=== PATIENT | female | born 1955 | race Caucasian/White ===

== ENCOUNTER 2019-03-21 20:56 | Inpatient (IN) | payer SELFPAY ==
[~2019-03-21] VITALS: Ht 154.9 cm; Wt 68.0 kg
[2019-03-21 21:39] VITALS: BP 127/67
[2019-03-21] MEDS ORDERED: NICOTINE POLACRILEX 4 MG LOZG PO PRN (22:15)
[2019-03-21] MEDS ORDERED: risperiDONE 1 MG TAB PO SCH (22:15)
[2019-03-21] MEDS ORDERED: CHLOR25 FT (22:43)
[2019-03-21] MEDS ORDERED: CHLOR25 PO (22:49)
[2019-03-21] MEDS ORDERED: ATEN-1 PO (22:49)
[2019-03-21] MEDS ORDERED: HYDR-4228 PO (22:51)
[2019-03-21] MEDS ORDERED: RISP1TAB79 PO (22:52)
[2019-03-21] MEDS ORDERED: ALBU8.5H IH (22:56)
[2019-03-21] MEDS ORDERED: MAG HYD/AL HYD/SIMETH 30ML UDC PO PRN (23:00)
[2019-03-21] MEDS ORDERED: TIO18R INH (23:07)
[2019-03-22 06:04] VITALS: BP 126/79
[2019-03-22] MEDS: MULTIVITAMINS TAB PO SCH (08:07)
[2019-03-22] MEDS: risperiDONE 1 MG TAB PO SCH ×2 (11:35→21:15)
[2019-03-22] MEDS: hydrOXYzine PAMOATE 25 MG CAP PO PRN ×2 (11:35→15:39)
[2019-03-22 14:16] VITALS: BP 114/78
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
[2019-03-22] MEDS: MENTHOL/METHYL SALI CREAM 57 GM 57 GM TUBE TP PRN (14:44)
[2019-03-22] MEDS ORDERED: NICOTINE CARTRIDGE 1 EA PO PRN (21:40)
[2019-03-22 21:44] VITALS: BP 115/75
--- NOTE | 2019-03-22 22:03 | NUR ---
pt set up with 2L/nc. Had it on approximately 5 min. Came out of room states "I will not wear that, It's not oxygen is something else". Oxygen taken out of room for safety. Instructed pt could have it back if she would like it. Addendum: 03/22/19 at 2205 by SVETA RAM RN Amended: Links added.
[2019-03-22] MEDS: ALBUTEROL 8 GM INHALER INH PRN (22:15)
[2019-03-22] MEDS: NICOTINE INH SYSTEM 10 MG/INH INH PRN (22:17)
[2019-03-23 05:55] VITALS: BP 107/75
[2019-03-23] MEDS: risperiDONE 1 MG TAB PO SCH ×2 (08:15→20:39)
[2019-03-23] MEDS: MULTIVITAMINS TAB PO SCH (08:15)
[2019-03-23] MEDS: hydrOXYzine PAMOATE 25 MG CAP PO PRN (08:50)
[2019-03-23] MEDS: MENTHOL/METHYL SALI CREAM 57 GM 57 GM TUBE TP PRN ×2 (08:51→16:02)
--- NOTE | 2019-03-23 09:22 | BHS Progress Note ---
[facility] - Subjective Progress Notes Subjective Patient cooperative today, refusing oxygen last night, because she felt "it was not oxygen", as she has had oxygen before at other hospitals. Patient would like to find a "secure place to live" . Patient now on Risperdal, and hydroxyzine. Appetite good, sleep intact. Mood good today, and interacting well with this provider. Suicidal Ideation: None Homicidal Ideation: None [facility] - Objective Physical Exam Vital Signs Vital Signs Date Time Temp Pulse Resp B/P (MAP) Pulse Ox O2 Delivery O2 Flow Rate FiO2 03/23/19 05:55 98.5 83 107/75 (86) 86 Room Air 03/22/19 06:04 16 Muscle Strength and Tone: WNL Gait and Station: Steady [facility] Medications Reviewed: Side Effects, Benefits of Medication, Risks Allergies Reviewed: Yes Mental Status Exam General Appearance: Casual, Well Groomed, Good Eye Contact, Cooperative, Polite, Good Interaction; No Unkept, No Tearful, No Psychomotor Agitation, No Psychomotor Retardation, No Bizarre Mannerisms, No Tics Speech: Clear, Spontaneous, Normal Rate, Normal Rhythm, Normal Volume, Normal Tone; No Slurred, No Garbled; Rambling (somewhat when talking of delusional content.) Mood: Euthymic Affect: Full and Appropriate, Calm; No Withdrawn, No Tearful, No Anxious, No Agitated Thought Process: Organized, Logical (illogical when focused on delusions. ), Goal Directed; No Loose Associations, No Flight of Ideas Thought Content: No Suicidal Ideation, No Homicidal Ideation; Delusions (ongoing grandiosity and persecutory); No Auditory Halllucinations, No Visual Hallucinations, No Thought Broadcasting; Ideas of Reference; No Obsessions, No Compulsions Sensorium: Clear Cognition: Alert & Oriented-Person, Alert & Oriented-Place, Alert & Oriented- Time, Nbtkh-Nrvjvdcu-Idjikznel Memory: Immediate, Recent, Remote Intelligence: Average Insight Judgment: Fair (underlying longstanding delusions, interfering. ) Result Diagram: 03/22/19 0637 [facility] Assessment and Plan Zadl-[id number] Encounter Date: Mar 23, 2019 Wzeb-po-Pisc Encounter Time: 08:40 [facility] Plan: Necessary Precautions, Individual/Group Therapy, Admin/Titrate Meds, Educate Patient Tobacco Medications: Started Multpiple Antipsychotics Used: No Problems: (1) DELUSIONAL DISORDERS Optional Permanent Comment: paranoid and grandiose type Last Edited By: Tory Kowalski on Mar 23, 2019 09:18 Status: Chronic Condition 1. continue medications. 2. look for placement. JUSTIN KOWALSKI MD Mar 23, 2019 09:22
[2019-03-23] MEDS: ALBUTEROL 8 GM INHALER INH PRN (10:42)
[2019-03-23 13:04] VITALS: BP 116/90
[2019-03-23] MEDS: NICOTINE INH SYSTEM 10 MG/INH INH PRN (15:59)
[2019-03-23 20:45] VITALS: BP 123/72
[2019-03-24 04:40] VITALS: BP 171/98
[2019-03-24 05:59] VITALS: BP 134/84
[2019-03-24] MEDS: risperiDONE 1 MG TAB PO SCH ×2 (08:11→21:00)
[2019-03-24] MEDS: MULTIVITAMINS TAB PO SCH (08:12)
[2019-03-24] MEDS: NICOTINE INH SYSTEM 10 MG/INH INH PRN (08:51)
[2019-03-24] MEDS: MENTHOL/METHYL SALI CREAM 57 GM 57 GM TUBE TP PRN (08:53)
[2019-03-24 09:44] VITALS: BP 134/81
[2019-03-24] MEDS ORDERED: ASPI1TAB23 PO (11:04)
[2019-03-24] MEDS ORDERED: OMEG10007 PO (11:04)
[2019-03-24] MEDS ORDERED: MENT113G6 TP (11:04)
--- NOTE | 2019-03-24 12:12 | BHS Progress Note ---
[facility] - Subjective Progress Notes Subjective "I am doing well", patient reports she would be tolerant of a roommate if necessary, and noted to be an active and cooperative participant in therapy groups. Mood good, much less talk of delusional content today, and patient reports good sleep and appetite. will continue to look into placement. no medication changes. Suicidal Ideation: None Homicidal Ideation: None [facility] - Objective Physical Exam Vital Signs Vital Signs Date Time Temp Pulse Resp B/P (MAP) Pulse Ox O2 Delivery O2 Flow Rate FiO2 03/24/19 09:44 98.0 96 134/81 (98) 95 Room Air 03/24/19 05:59 15 Muscle Strength and Tone: WNL Gait and Station: Steady [facility] Medications Reviewed: Side Effects, Benefits of Medication, Risks Allergies Reviewed: Yes Mental Status Exam General Appearance: Casual, Well Groomed, Good Eye Contact, Cooperative, Polite, Good Interaction; No Unkept, No Tearful, No Psychomotor Agitation, No Psychomotor Retardation, No Bizarre Mannerisms, No Tics Speech: Clear, Spontaneous, Normal Rate, Normal Rhythm, Normal Volume, Normal Tone; No Slurred, No Garbled; Rambling (somewhat when talking of delusional content.) Mood: Euthymic Affect: Full and Appropriate, Calm; No Withdrawn, No Tearful, No Anxious, No Ag itated Thought Process: Organized, Logical (illogical when focused on delusions. ), Goal Directed; No Loose Associations, No Flight of Ideas Thought Content: No Suicidal Ideation, No Homicidal Ideation; Delusions (ongoing grandiosity and persecutory); No Auditory Halllucinations, No Visual Hallucinations, No Thought Broadcasting; Ideas of Reference; No Obsessions, No Compulsions Sensorium: Clear Cognition: Alert & Oriented-Person, Alert & Oriented-Place, Alert & Oriented- Time, Hrrnl-Imtogwmm-Jzvhacacp Memory: Immediate, Recent, Remote Intelligence: Average Insight Judgment: Fair (underlying longstanding delusions, interfering. ) Result Diagram: 03/22/19 0637 [facility] Assessment and Plan Zfcv-ec-Hosw Encounter Date: Mar 24, 2019 Otxx-xz-Ulat Encounter Time: 12:00 [facility] Plan: Necessary Precautions, Individual/Group Therapy, Admin/Titrate Meds, Educate Patient Tobacco Medications: Started Multpiple Antipsychotics Used: No Problems: (1) DELUSIONAL DISORDERS Optional Permanent Comment: paranoid and grandiose type Last Edited By: Justin Kowalski on Mar 23, 2019 09:18 Status: Chronic Condition 1. continue treatment. 2. no medication changes. 3. look into potential placement. JUSTIN KOWALSKI MD Mar 24, 2019 12:12
[2019-03-24] MEDS: hydrOXYzine PAMOATE 25 MG CAP PO PRN (17:41)
[2019-03-24] MEDS: ACETAMINOPHEN 325 MG TAB PO PRN (19:18)
[2019-03-24 21:11] VITALS: BP 121/69
[2019-03-24] MEDS ORDERED: ONDANSETRON 4 MG ODT TABDP SL ONE (22:00)
[2019-03-25 04:40] VITALS: BP 126/79
[2019-03-25] MEDS: MULTIVITAMINS TAB PO SCH (08:14)
[2019-03-25] MEDS: risperiDONE 1 MG TAB PO SCH ×2 (08:14→20:42)
[2019-03-25] MEDS: NICOTINE INH SYSTEM 10 MG/INH INH PRN (08:55)
[2019-03-25] MEDS: ACETAMINOPHEN 325 MG TAB PO PRN (08:58)
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
[2019-03-25] MEDS: hydrOXYzine PAMOATE 25 MG CAP PO PRN (15:46)
[2019-03-25 20:54] VITALS: BP 114/80
[2019-03-26 06:46] VITALS: BP 127/84
[2019-03-26] MEDS: MULTIVITAMINS TAB PO SCH (07:46)
[2019-03-26] MEDS: risperiDONE 1 MG TAB PO SCH ×2 (07:46→20:27)
[2019-03-26] MEDS: ACETAMINOPHEN 325 MG TAB PO PRN ×2 (07:46→12:55)
--- NOTE | 2019-03-26 11:03 | BHS Progress Note ---
[facility] - Subjective Progress Notes Subjective Patient reports doing well overall today, worried about her car being towed from hotel. Patient agrees to have vehicle moved to hospital. Patient stabilizing on Meds, and will continue the same medications today, and will continue to look for placement. Sleep, appetite, good. No other concerns today. Suicidal Ideation: None Homicidal Ideation: None [facility] - Objective Physical Exam Vital Signs Vital Signs Date Time Temp Pulse Resp B/P (MAP) Pulse Ox O2 Delivery O2 Flow Rate FiO2 03/26/19 06:46 98.6 106 15 127/84 (98) 85 Room Air Muscle Strength and Tone: WNL Gait and Station: Steady [facility] Medications Reviewed: Side Effects, Benefits of Medication, Risks Allergies Reviewed: Yes Mental Status Exam General Appearance: Casual, Well Groomed, Good Eye Contact, Cooperative, Polite, Good Interaction; No Unkept, No Tearful, No Psychomotor Agitation, No Psychomotor Retardation, No Bizarre Mannerisms, No Tics Speech: Clear, Spontaneous, Normal Rate, Normal Rhythm, Normal Volume, Normal Tone; No Slurred, No Garbled; Rambling (somewhat when talking of delusional content.) Mood: Euthymic Affect: Full and Appropriate, Calm; No Withdrawn, No Tearful, No Anxious, No Agitated Thought Process: Organized, Logical (illogical when focused on delusions. ), Goal Directed; No Loose Associations, No Flight of Ideas Thought Content: No Suicidal Ideation, No Homicidal Ideation; Delusions (ongoing grandiosity and persecutory); No Auditory Halllucinations, No Visual [place] llucinations, No Thought Broadcasting; Ideas of Reference; No Obsessions, No Compulsions Sensorium: Clear Cognition: Alert & Oriented-Person, Alert & Oriented-Place, Alert & Oriented- Time, Wpjmq-Efushfva-Srgmjyhwa Memory: Immediate, Recent, Remote Intelligence: Average Insight Judgment: Fair (underlying longstanding delusions, interfering. ) Result Diagram: 03/22/19 0637 [facility] Assessment and Plan Sktq-co-Irda Encounter Date: Mar 26, 2019 Qcvr-[id number] Encounter Time: 10:30 [facility] Plan: Necessary Precautions, Individual/Group Therapy, Admin/Titrate Meds, Educate Patient Tobacco Medications: Started Multpiple Antipsychotics Used: No Problems: (1) DELUSIONAL DISORDERS Optional Permanent Comment: paranoid and grandiose type Last Edited By: Justin Kowalski on Mar 23, 2019 09:18 Status: Chronic Condition 1. continue treatment. 2. no medication changes. 3. look for placement upon discharge. JUSTIN KOWALSKI MD Mar 26, 2019 11:03
[2019-03-26 12:40] VITALS: BP 94/62
[2019-03-26] MEDS: MENTHOL/METHYL SALI CREAM 57 GM 57 GM TUBE TP PRN (12:48)
[2019-03-26] MEDS: hydrOXYzine PAMOATE 25 MG CAP PO PRN (17:33)
[2019-03-26] MEDS: ALBUTEROL 8 GM INHALER INH PRN (17:40)
[2019-03-26 18:15] VITALS: BP 111/86
[2019-03-27 06:09] VITALS: BP 122/86
[2019-03-27] MEDS: ACETAMINOPHEN 325 MG TAB PO PRN ×2 (07:44→17:47)
[2019-03-27] MEDS: risperiDONE 1 MG TAB PO SCH ×2 (07:44→21:31)
[2019-03-27] MEDS: MULTIVITAMINS TAB PO SCH (07:44)
[2019-03-27] MEDS: MENTHOL/METHYL SALI CREAM 57 GM 57 GM TUBE TP PRN (07:45)
[2019-03-27] MEDS: NICOTINE INH SYSTEM 10 MG/INH INH PRN (08:47)
[2019-03-27] MEDS: hydrOXYzine PAMOATE 25 MG CAP PO PRN (09:46)
--- NOTE | 2019-03-27 10:41 | BHS Progress Note ---
[facility] - Subjective Progress Notes Subjective "I'm good. 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 I knew Ramírez Khoury...I wrote [place] on [employer] for him as a birthday present.' She reports that she is sleeping well. She reports that her anxiety and stress level are improving rating her current anxiety level a 2. She denies anger or depression. She denies SI. She reports looking forward to going to treatment. Suicidal Ideation: None Homicidal Ideation: None [facility] - Objective Physical Exam Vital Signs Vital Signs Date Time Temp Pulse Resp B/P (MAP) Pulse Ox O2 Delivery O2 Flow Rate FiO2 03/27/19 06:09 98.4 97 15 122/86 (98) 84 Room Air Muscle Strength and Tone: WNL Gait and Station: Steady [facility] Medications Reviewed: Side Effects, Benefits of Medication, Risks Allergies Reviewed: Yes Mental Status Exam General Appearance: Casual, Well Groomed, Good Eye Contact, Cooperative, Polite, Good Interaction; No Unkept, No Tearful, No Psychomotor Agitation, No Psychomotor Retardation, No Bizarre Mannerisms, No Tics Speech: Clear, Spontaneous, Normal Rate, Normal Rhythm, Normal Volume, Normal Tone; No Slurred, No Garbled; Rambling (somewhat when talking of delusional content.) Mood: Euthymic Affect: Full and Appropriate, Calm; No Withdrawn; Tearful (tearful at times when talking about events from past); No Anxious, No Agitated Thought Process: Organized, Logical (illogical when focused on delusions. ), Goal Directed; No Loose Associations, No Flight of Ideas Thought Content: No Suicidal Ideation, No Homicidal Ideation; Delusions (ongoing grandiosity and persecutory); No Auditory Halllucinations, No Visual Hallucinations, No Thought Broadcasting; Ideas of Reference; No Obsessions, No Compulsions Sensorium: Clear Cognition: Alert & Oriented-Person, Alert & Oriented-Place, Alert & Oriented- Time, Kuilo-Ojljbzzn-Yolcvpuwa Memory: Immediate, Recent, Remote Intelligence: Average Insight Judgment: Fair (underlying longstanding delusions, interfering. ) [facility] Assessment and Plan [id number] Encounter Date: Mar 27, 2019 Qbev-lr-Aduk Encounter Time: 08:45 [facility] Plan: Necessary Precautions, Individual/Group Therapy, Admin/Titrate Meds, Educate Patient Tobacco Medications: Started Multpiple Antipsychotics Used: No Problems: (1) DELUSIONAL DISORDERS Optional Permanent Comment: paranoid and grandiose type Last Edited By: Matt Chin on Mar 23, 2019 09:18 Status: Chronic Condition She is pleasant and cooperative. Grandiose and persecutory delusions continue a nd she shares detailed stories. She denies SI, HI. She is compliant with medications and reports that they are helpful. PLAN: No medication changes today. Continue discharge planning. ANTHONY BERMUDEZ NP Mar 27, 2019 10:41
[2019-03-27 11:15] VITALS: BP 112/62
[2019-03-27 20:06] VITALS: BP 129/85
[2019-03-28 06:11] VITALS: BP 131/92
[2019-03-28] MEDS: NICOTINE INH SYSTEM 10 MG/INH INH PRN ×3 (06:39→21:00)
[2019-03-28] MEDS: ACETAMINOPHEN 325 MG TAB PO PRN ×2 (07:10→13:46)
[2019-03-28] MEDS: hydrOXYzine PAMOATE 25 MG CAP PO PRN ×2 (07:10→13:45)
[2019-03-28] MEDS: MENTHOL/METHYL SALI CREAM 57 GM 57 GM TUBE TP PRN (07:11)
[2019-03-28] MEDS: risperiDONE 1 MG TAB PO SCH ×2 (07:51→21:37)
[2019-03-28] MEDS: MULTIVITAMINS TAB PO SCH (07:51)
--- NOTE | 2019-03-28 10:18 | BHS Progress Note ---
[facility] - Subjective Progress Notes Subjective "Ok. Real good. I have dementia so I don't remember what group was about but I know I enjoyed it." She reports sleeping well. Denies concerns today. Suicidal Ideation: None Homicidal Ideation: None [facility] - Objective Physical Exam Vital Signs Vital Signs 03/27/19 03/28/19 20:06 06:11 Temp 98.4 Pulse 73 Resp 16 B/P (MAP) 131/92 (105) Pulse Ox 88 O2 Delivery Room Air Muscle Strength and Tone: WNL Gait and Station: Steady [facility] Medications Reviewed: Side Effects, Benefits of Medication, Risks Allergies Reviewed: Yes Mental Status Exam General Appearance: Casual, Well Groomed, Good Eye Contact, Cooperative, Polite, Good Interaction; No Unkept, No Tearful, No Psychomotor Agitation, No Psychomotor Retardation, No Bizarre Mannerisms, No Tics Speech: Clear, Spontaneous, Normal Rate, Normal Rhythm, Normal Volume, Normal Tone; No Slurred, No Garbled; Rambling (somewhat when talking of delusional content.) Mood: Euthymic Affect: Full and Appropriate, Calm; No Withdrawn, No Anxious, No Agitated Thought Process: Organized, Logical (illogical when focused on delusions. ), Goal Directed; No Loose Associations, No Flight of Ideas Thought Content: No Suicidal Ideation, No Homicidal Ideation; Delusions (ongoing grandiosity and persecutory); No Auditory Halllucinations, No Visual Hallucinations, No Thought Broadcasting; Ideas of Reference; No Obsessions, No Compulsions Sensorium: Clear Cognition: Alert & Oriented-Person, Alert & Oriented-Place, Alert & Oriented- Time, Etzmu-Lentyssm-Oiprtqzzy Memory: Immediate, Recent, Remote Intelligence: Average Insight Judgment: Fair (underlying longstanding delusions, interfering. ) [facility] Assessment and Plan Doim-pl-Twfz Encounter Date: Mar 28, 2019 Yapc-[id number]-Vplp Encounter Time: 08:45 [facility] Plan: Necessary Precautions, Individual/Group Therapy, Admin/Titrate Meds, Educate Patient Tobacco Medications: Started Multpiple Antipsychotics Used: No Problems: (1) DELUSIONAL DISORDERS Optional Permanent Comment: paranoid and grandiose type Last Edited By: Matt Chin on Mar 23, 2019 09:18 Status: Chronic Condition Client is pleasant and cooperative. No tearfulness today. She reports that she is looking forward to going to treatment. She continues to experience perscetutory and grandiose delusions. PLAN: Continue to monitor and provide s afety and support. Continue current medications. Continue discharge planning. ANTHONY BERMUDEZ NP Mar 28, 2019 10:18
[2019-03-28 13:35] VITALS: BP 138/78
[2019-03-28 21:40] VITALS: BP 143/85
[2019-03-29] MEDS: NICOTINE INH SYSTEM 10 MG/INH INH PRN ×5 (06:04→21:23)
[2019-03-29 06:11] VITALS: BP 142/88
[2019-03-29] MEDS: hydrOXYzine PAMOATE 25 MG CAP PO PRN ×2 (06:25→13:05)
[2019-03-29] MEDS: ACETAMINOPHEN 325 MG TAB PO PRN ×2 (06:25→21:23)
[2019-03-29] MEDS: MULTIVITAMINS TAB PO SCH (08:13)
[2019-03-29] MEDS: risperiDONE 1 MG TAB PO SCH ×2 (08:13→21:12)
[2019-03-29 10:22] VITALS: BP 132/81
--- NOTE | 2019-03-29 11:03 | BHS Progress Note ---
[facility] - Subjective Progress Notes Subjective Patient continues to do well on the unit, and verbalizes a continued [facility] going to [facility], will await acceptance, and plan on move to [facility] if accepted to [facility]. Mild underlying delusions of persecution and grandiosity continue. 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 Suicidal Ideation: None Homicidal Ideation: None [facility] - Objective Physical Exam Vital Signs Vital Signs Date Time Temp Pulse Resp B/P (MAP) Pulse Ox O2 Delivery O2 Flow Rate FiO2 03/29/19 10:22 98.6 94 132/81 (98) 90 Room Air 03/28/19 13:35 18 Muscle Strength and Tone: WNL Gait and Station: Steady [facility] Medications Reviewed: Side Effects, Benefits of Medication, Risks Allergies Reviewed: Yes Mental Status Exam General Appearance: Casual, Well Groomed, Good Eye Contact, Cooperative, Polite, Good Interaction; No Unkept, No Tearful, No Psychomotor Agitation, No Psychomotor Retardation, No Bizarre Mannerisms, No Tics Speech: Clear, Spontaneous, Normal Rate, Normal Rhythm, Normal Volume, Normal Tone; No Slurred, No Garbled, No Rambling, No Inappropriate Mood: Euthymic Affect: Full and Appropriate, Calm; No Withdrawn, No Anxious, No Agitated Thought Process: Organized, Logical (illogical when focused on delusions. ), Goal Directed; No Loose Associations, No Flight of Ideas Thought Content: No Suicidal Ideation, No Homicidal Ideation; Delusions (ongoing grandiosity and persecutory); No Auditory Halllucinations, No Visual Hallucinations, No Thought Broadcasting; Ideas of Reference; No Obsessions, No Compulsions Sensorium: Clear Cognition: Alert & Oriented-Person, Alert & Oriented-Place, Alert & Oriented- Time, Wgdhm-Bylznffa-Dhntinzbp Memory: Immediate, Recent, Remote Intelligence: Average Insight Judgment: Fair (underlying longstanding delusions, interfering. ) [facility] Assessment and Plan Iesm-wr-[id number] Encounter Date: Mar 29, 2019 Ycwe-kw-Gbko Encounter Time: 10:30 [facility] Plan: Necessary Precautions, Individual/Group Therapy, Admin/Titrate Meds, Educate Patient Tobacco Medications: Started Multpiple Antipsychotics Used: No Problems: (1) DELUSIONAL DISORDERS Optional Permanent Comment: paranoid and grandiose type Last Edited By: Justin Kowalski on Mar 23, 2019 09:18 Status: Chronic Condition 1. Continue treatment. 2. no medication changes. 3. look into [facility] placement. JUSTIN KOWALSKI MD Mar 29, 2019 11:02
[2019-03-29] MEDS: TERBINAFINE 1% TP SCH ×2 (13:06→21:20)
[2019-03-29 21:26] VITALS: BP 158/99
[2019-03-30] MEDS: ACETAMINOPHEN 325 MG TAB PO PRN (05:37)
[2019-03-30 05:58] VITALS: BP 152/96
[2019-03-30] MEDS: NICOTINE INH SYSTEM 10 MG/INH INH PRN (06:20)
[2019-03-30] MEDS: MULTIVITAMINS TAB PO SCH (08:14)
[2019-03-30] MEDS: risperiDONE 1 MG TAB PO SCH (08:14)
[2019-03-30] MEDS: MENTHOL/METHYL SALI CREAM 57 GM 57 GM TUBE TP PRN (08:15)
[2019-03-30] MEDS: TERBINAFINE 1% TP SCH (08:15)
[2019-03-30] MEDS ORDERED: LAMISIL 1% CREAM TOP (08:56)
[2019-03-30] MEDS ORDERED: MULT-1379 PO (08:57)
[2019-03-30] MEDS ORDERED: NIC10R INH (08:59)
[2019-03-30] MEDS ORDERED: NICOTINE CARTRIDGE PO (09:00)
--- NOTE | 2019-03-31 15:02 | SCHAAF DISCHARGE ---
DATE OF ADMISSION: March 21, 2019. DATE OF DISCHARGE: March 30, 2019. ATTENDING PHYSICIAN Matt Chin MD The patient was seen at approximately 0800 hours on March 30, 2019 for note concerning this dictation. FINAL DIAGNOSES 1. Delusional disorder with grandiose and persecutory type delusions. 2. Social stressors related to illness ongoing. 3. Limited resources. REASON FOR ADMISSION This is a 64-year-old female who was traveling through the [facility]. The patient reportedly was becoming tired and got stopped and went to a hotel. The patient experienced increasing paranoia with different tenants in the hotel. She called police to come and evaluate the situation. The police eventually talked to the patient enough to where they through she should be evaluated in the emergency room. The patient was brought on a voluntary basis to the emergency room, admitted to [facility] for further management of what appeared to be underlying persecutory type delusions. Upon admission to the Behavioral Health Unit, the patient reported simultaneously persecutory type and grandiose delusions. Please see H and P for full details. The patient also reporting that low-dose Risperdal and hydroxyzine has helped her in the past and would like to restart these medications. These medications were restarted and the patient also noted to be drug seeking to a limited degree of benzodiazepines which were not given. The patient continued to improve. She was able to participate in groups, was encouraged to consider [facility] half-way placement which the patient stated she would do. As this was being looked into, the patient continued to improve and later decided to leave to pursue her travels to the [facility]. Any gross paranoia the patient exhibited on the unit such as feeling her oxygen was being poisoned quickly subsided with the administration of Risperdal and therapy. The patient overall remained calm and cooperative and took an active role in her treatment, attending group and individual therapy sessions and patient's symptoms overall lessened to the point she could be safely discharged. PHYSICAL EXAMINATION Please see emergency room note. Notable for a 64-year-old female, no acute medical distress. Vital signs at the time of admission: Temperature 98.3, pulse 81, respiratory rate 16, blood pressure 129/91 and pulse oximetry 89% on room air. Vital signs at the time of discharge: Temperature 98.7, pulse 81, respiratory rate 18, blood pressure 152/96 and pulse oximetry 90% on room air. LABORATORY DATA CBC upon admission overall unremarkable. Hemoglobin slightly elevated at 16.3. Chemistry panel notable for hypokalemia at time of admission. This was resolved to a level of 3.6 prior to discharge. TSH 2.32, otherwise unremarkable CMP. Urinalysis unremarkable. Toxicology screen negative with a nondetectable serum alcohol level. CMP on 03/22/19 was overall unremarkable as well. Calcium level of 10.3 and slightly elevated. MENTAL STATUS EXAMINATION GENERAL APPEARANCE, BEHAVIOR AND ATTITUDE: This is fairly well-groomed 64-year-old female, appears stated age. Making good eye contact, polite, cooperative and no obvious signs of paranoia or grandiosity remained. Nontearful. SPEECH: Within normal limits. Regular rate, rhythm, volume and tone. MOOD: Described as good and improved. AFFECT: Full and mood-congruent. THOUGHT PROCESSES: Logical with the exception of talking about delusions, goal- directed in that she wanted to travel to [place], no loose associations or flight of ideas. THOUGHT CONTENT: No obvious auditory or visual hallucinations, some ideas of reference with underlying grandiose and persecutory type delusions remained. No obsessions or compulsions. The patient adamantly denying suicidal or homicidal ideation. SENSORIUM: Clear. COGNITION: Alert and oriented to person, place, time and situation. MEMORY: Immediate, recent and remote was estimated intact. INTELLIGENCE: Average, based on interview. INSIGHT AND JUDGMENT: Considered grossly intact and appropriate for ongoing outpatient management in the absence of drug use. The patient will remain on low-dose Risperdal and hydroxyzine. RESULTS OF TESTING Imaging: None. Laboratory data: See above. Psychological testing: Not done. CONSULTATIONS None. TREATMENT Patient received medications, participated in individual and group therapy. HOSPITAL COURSE Initially, the patient presenting with persecutory and grandiose delusions which lessened throughout her stay. The patient exhibiting some paranoid type behaviors toward staff on the floor initially and this quickly resolved as well. The patient continued to improve. Initially, the patient was agreeable to going to [facility]. She later declined and decided to get back on the road traveling toward [place]. CONDITION OF PATIENT ON DISCHARGE Stable. Considered a minimal risk to herself or others, appropriate for outpatient care in the absence of drug or alcohol use. DISPOSITION The patient was discharged to her vehicle. She would be traveling toward [place]. She would follow up there with outpatient therapy and medication management as instructed. The patient will remain on Albuterol inhaler, Anacin tablets as needed, atenolol 50 mg daily, chlorthalidone 25 mg daily, hydroxyzine 50 mg orally twice a day as needed for anxiety and insomnia, multivitamin with minerals daily, Risperdal 1 mg b.i.d., Lamisil and Bengay, the patient could continue to use omega 3 fatty acid and nicotine replacement therapy. The risks, benefits and alternatives of the above discharge plan were discussed. Informed consent was given to proceed with the above discharge plan by this competent patient. The patient would follow up with primary care provider for hypertension and establish a permanent residence. Patient agreed not to take benzodiazepines and was given the Crisis Line should symptoms return. SUZIE
== END 2019-03-30 09:30 | disposition home or self-care (01) | DRG 885 ==
LOC: BHS 20:56
PROVIDERS: ADMIT Nurse Practitioner Psychiatric/Mental Health; ATTEND Nurse Practitioner Psychiatric/Mental Health
DX: F22 Delusional disorders (principal); F43.10 Post-traumatic stress disorder, unspecified; F41.9 Anxiety disorder, unspecified; F42.9 Obsessive-compulsive disorder, unspecified
CPT/HCPCS: 36415; 82040; 82247; 82310; 82374; 82435; 82565; 82947; 84075; 84132; 84155; 84295; 84450; 84460; 84520; 86580; 94640; Q0177